=== PATIENT | male | born 1970 | race Caucasian/White ===

== ENCOUNTER → 2024-03-12 14:03 | Outpatient (REF) | payer BC, SELFPAY | LOC: RAD 14:03 | DX: M25.561 Pain in right knee (principal); G89.29 Other chronic pain; L40.9 Psoriasis, unspecified | CPT/HCPCS: 73562 ==

== ENCOUNTER 2024-04-07 14:01 | Emergency (ER) | payer BC, SELFPAY ==
[2024-04-07 14:08] VITALS: BP 145/96
[2024-04-07 14:08] LABS: Glucose - Point of Care 359 mg/dl (70-99)
[2024-04-07 14:29] LABS: Venous Blood Gas B.E. -3.3 mmol/L (-4 to +4); Venous Blood Gas HCO3 22.7 mmol/L (22-27); Venous Blood Gas O2 Sat % 81.1 %; Venous Blood Gas pCO2 43 mmHg (35-48); Venous Blood Gas pH 7.33 (7.32-7.43); Venous Blood Gas pO2 46 mmHg (30-50)
[2024-04-07 14:32] LABS: % Basophils 1.1 % (0-2); % Eosinophils 2.6 % (0-6); % Immature Granulocytes 0.3 % (0-0.5); % Lymphocytes 20.3 % (20.5-51.1); % Monocytes 6.4 % (1.7-9.3); % Neutrophils 69.3 % (42.2-75.2); Absolute Basophils 0.1 10^3/uL (0-0.2); Absolute Eosinophils 0.2 10^3/uL (0-0.7); Absolute Lymphocytes 1.6 10^3/uL (1.2-3.4); Absolute Monocytes 0.5 10^3/uL (0.1-0.6); Absolute Neutrophils 5.5 10^3/uL (1.4-6.5); Hemoglobin 14.8 g/dL (13.0-18.0); Mean Corp Hgb Conc. 35.2 g/dL (33.0-37.0); Mean Corpuscular Hgb 29.1 pg (27.0-31.0); Mean Corpuscular Volume 82.7 fL (80.0-94.0); Mean Platelet Volume 10.4 fL (7.4-10.4); Nucleated Red Blood Cells % 0 % (-); Platelet Count 322 10^3/uL (130-400); Red Blood Cell Count 5.08 10^6/uL (4.70-6.10); Red Cell Dist. Width 13.2 % (11.5-14.5)
[2024-04-07 14:41] LABS: ALT (SGPT) 22 U/L (0-50); AST (SGOT) 18 U/L (17-59); Albumin 4.9 g/dl (3.5-5.0); Alkaline Phosphatase 76 U/L (38-126); Blood Urea Nitrogen 29 mg/dl (9-20); Calcium 10.2 mg/dl (8.4-10.2); Carbon Dioxide 22 mmol/L (22-30); Chloride 100 mmol/L (98-107); Glucose 360 mg/dl (70-99); Potassium 4.6 mmol/L (3.5-5.1); Sodium 131 mmol/L (135-145); Total Bilirubin 0.6 mg/dl (0.2-1.3); Total Protein 7.2 g/dl (6.3-8.2); eGFR > 60.00
[2024-04-07 14:48] LABS: B-Hydroxybutyrate 0.29 mmol/L (0.02-0.27)
--- NOTE | 2024-04-07 15:43 | ED.GENMED ---
History of Present Illness
General
Chief Complaint: Blood Sugar Problem
Source: patient
Time Seen by Provider: 04/07/24 15:22
History of Present Illness
History of Present Illness:
53yoM with a history of type 2 diabetes, hypertension, hypothyroidism, and remote history of testicular cancer in remission presenting for evaluation of hyperglycemia. He went for routine blood work yesterday and was found to have a hemoglobin A1c
greater than 14. Patient's last A1c about a year ago was 6.7. Patient is currently taking Jardiance which he reports compliance with. He does not routinely check his blood sugar at home but did check it yesterday after he found out the results
and his sugar was in the 350s. Patient is asymptomatic at this time and denies any polyuria, polydipsia, visual disturbance. Patient has not seen his PCP in about 2 years but has an appointment scheduled for next week. He was previously on
metformin but this was discontinued due to severe diarrhea.
Past History
Past History
ED Past Medical History: Cancer
ED Past Surgical History: Urological (testicle sx for ca february 2015)
Social History
Tobacco: Non-smoker
Alcohol: None
Drug: None
Living: with family
Employment: Employed (clinical researcher)
Phy Exam
General Physical Exam
General Presentation: well appearing and no apparent distress
General age: appears stated age
General Skin: warm and dry
General Habitus: normal
Cardiovascular Exam
Cardiovascular Exam: regular rate/rhythm, no edema and no murmur
Pulmonary Exam
Pulmonary Exam: lungs clear, no respiratory distress, no crackles and no wheezing
Skin Exam
Skin Exam: normal color and warm/dry
Psychiatric Exam
Psychiatric Exam: normal mood/affect
Course
Orders/Labs/Results
Orders:
Orders
04/07/24 14:13
B-Hydroxybutyrate Urgent
Complete Blood Count/With Diff Urgent
Comprehensive Metabolic Panel Urgent
Venous Blood Gas Urgent
%Oxygen/Room Air: room air
04/07/24 15:42
0.9% Sodium Chloride 1000 ml [Nss] 1,000 ml IV BOLUS
04/07/24 15:56
Urinalysis Reflex To Culture Urgent
Date Specimen was Collected: 04/07/24
Time Specimen was Collected: 15:55
Abnormal Lab Results
04/07/24 04/07/24 04/07/24
14:07 14:13 15:56
Lymphocytes % 20.3 L %
(20.5-51.1)
Sodium 131 L mmol/L
(135-145)
BUN 29 H mg/dl
(9-20)
Glucose 360 H mg/dl
(70-99)
Urine Glucose 3+ A
(Negative)
B-Hydroxybutyrate 0.29 H mmol/L
(0.02-0.27)
POC Glucose 359 H mg/dl
(70-99)
04/07/24 14:13
04/07/24 14:13
Vital Signs
Initial and Last Documented VS:
Initial Vital Signs
Temp Pulse Resp BP Pulse Ox
98.7 F 105 18 145/96 99
04/07/24 14:08 04/07/24 14:08 04/07/24 14:08 04/07/24 14:08 04/07/24 14:08
Last Documented Vital Signs
Temp Pulse Resp BP Pulse Ox
98.7 F 90 16 104/70 95
04/07/24 14:08 04/07/24 15:57 04/07/24 15:57 04/07/24 15:57 04/07/24 15:57
MDM/Problems Addressed
Differential Diagnosis Includes:
53yoM here with hyperglycemia found on routine outpatient labs yesterday. HbA1c >14. Currently asymptomatic. Hx of T2DM on Jardiance. He is afebrile and hemodynamically stable. He is well appearing in no distress. Exam reassuring. Differential
diagnosis includes but is not limited to: uncontrolled diabetes, DKA, HHS
Initial ED plan: Check CBC, CMP, UA. IV fluid bolus.
*Critical Care Note
Total Time (30-74mins, 75-104mins- exclusive of procedures): Not Applicable
Update Note
Update Note:
Labs reveal a glucose of 360. Sodium 131, likely pseudohyponatremia in setting of hyperglycemia. Bicarb is normal. No ketones present on urinalysis. No evidence of DKA on workup. He is stable for discharge. Offered prescription for metformin which
he declines as he has had side effects from his previously. He has an appt scheduled with his PCP in 6 days for close f/u. ED return precautions discussed. He was discharged in stable condition.
ED Attending Note
-
Portions of this chart may have been created with voice recognition software.� Occasional wrong word or��sound alike� substitutions may have occurred due to the inherent limitations of voice recognition software.
Discharge Plan
Departure
Patient Disposition: Home (Routine Discharge)
Date of Disposition: 04/07/24
Time of Disposition: 17:12
Patient with high blood pressure during this ER visit?: No
Discharge Problem:
Hyperglycemia due to type 2 diabetes mellitus
Instructions: Type 2 Diabetes (DC), Carb counting for adults with diabetes
Prescriptions:
No Action
levothyroxine 50 MCG tablet
50 mcg PO DAILY
Norvasc:
5 mg PO DAILY
Referrals:
Jairo Denis MD [Family Provider] -
Activity Restrictions/Additional Instructions:
Monitor your blood sugar at home and your carb intake. Continue Jardiance for now.
Please follow-up with your family doctor next week as previously scheduled. Return to the ER with any worsening symptoms.
Interventions
Interventions:
*Risk Screen - Suicide Last Done: 04/07/24 15:15
*General Assessment Last Done: 04/07/24 17:24
*Neglect/Abuse Screening Last Done: 04/07/24 15:15
*Nursing Disposition Last Done: 04/07/24 17:24
ED- Neurological Assessment Last Done: 04/07/24 15:43
Discharge Date and Time
Discharge Date/Time: 04/07/24 17:25
Print Language: AZERI
[2024-04-07] MEDS: NSS 1000 IV (15:55)
[2024-04-07 15:57] VITALS: BP 104/70
[2024-04-07 16:54] LABS: Urine Albumin Negative (Neg - Trace); Urine Bilirubin Negative (Negative); Urine Character Clear (Clear); Urine Color Yellow; Urine Glucose 3+ (Negative); Urine Ketone Negative (Negative); Urine Leukocyte Negative (Negative); Urine Nitrite Negative (Negative); Urine Occult Blood Negative (Negative); Urine Urobilinogen Negative (Neg - 1+)
== END 2024-04-07 17:25 | disposition home or self-care (01) ==
LOC: EMR 14:01
PROVIDERS: Physician Assistant; EMERGENCY PHYSICIAN Emergency Medicine; FAMILY PHYSICIAN Internal Medicine
DX: E11.65 Type 2 diabetes mellitus with hyperglycemia (principal); E03.9 Hypothyroidism, unspecified; I10 Essential (primary) hypertension; Z85.47 Personal history of malignant neoplasm of testis
CPT/HCPCS: 99283; 96360; 80053; 81003; 82010; 82805; 82962; 85025

== ENCOUNTER → 2024-04-28 14:03 | Outpatient (REF) | payer BC, SELFPAY | LOC: RCS 14:03 | PROVIDERS: ATTENDING PHYSICIAN Internal Medicine; FAMILY PHYSICIAN Internal Medicine | DX: R01.1 Cardiac murmur, unspecified (principal) | CPT/HCPCS: 93306 ==